=== PATIENT | female | born 1970 | race American Indian/Alaskan Native ===

== ENCOUNTER 2018-12-29 21:52 | Emergency (ER) | payer OTHER ==
--- NOTE | 2018-12-29 22:17 | Emergency Department Report ---
Blank Doc - Documentation Documentation: 48-year-old female that presents with abdominal pain with n/v. Had a procedure today for uterine embolization. This initial assessment/diagnostic orders/clinical plan/treatment(s) is/are subject to change based on patient's health status, clinical progression and re-assessment by fellow clinical providers in the ED. Further treatment and workup at subsequent clinical providers discretion. Patient/guardians urged not to elope from the ED as their condition may be serious if not clinically assessed and managed. Initial orders include: 1- Patient sent to MAIN for further evaluation and treatment. 2- UA 3- labs
[2018-12-29 22:53] LABS: Bilirubin,Urine NEG (Negative); Blood,Urine MOD (Negative); Color,Urine Yellow (Yellow); Mucus,Urine FEW /HPF; Urobilinogen,Urine < 2.0 mg/dL (<2.0)
[2018-12-29 23:03] LABS: Basophils # (Auto) 0.1 K/mm3 (0.0-0.1); Basophils % (Auto) 0.6 % (0.0-1.8); Eosinophils % (Auto) 0.1 % (0.0-4.3); Hematocrit 43.1 % (30.3-42.9); Hemoglobin 14.4 gm/dl (10.1-14.3); Lymphocytes # (Auto) 0.9 K/mm3 (1.2-5.4); Lymphocytes % (Auto) 7.2 % (13.4-35.0); Mean Corpuscular HGB Conc 33 % (30-34); Mean Corpuscular Volume 86 fl (79-97); Monocytes # (Auto) 0.6 K/mm3 (0.0-0.8); Platelet Count 368 K/mm3 (140-440); Red Blood Count 5.04 M/mm3 (3.65-5.03); Red Cell Distribution Width 13.8 % (13.2-15.2)
[2018-12-29 23:19] LABS: Alanine Aminotransferase 11 units/L (7-56); Albumin 4.8 g/dL (3.9-5); BUN/Creatinine Ratio 11; Blood Urea Nitrogen 8 mg/dL (7-17); Calcium 9.9 mg/dL (8.4-10.2); Hemolysis Index 71
[2018-12-29] MEDS ORDERED: NACL 0.9% 500 ML IV STA (23:21)
[2018-12-29] MEDS ORDERED: MORPHINE IV ONE (23:21)
[2018-12-29] MEDS ORDERED: ZOFRAN IV ONE (23:21)
--- NOTE | 2018-12-29 23:22 | Emergency Department Report ---
ED General Adult HPI - General Chief complaint: Abdominal Pain Stated complaint: EMESIS/ABD PAIN/POST FIBROIDS PROCEDURE Time Seen by Provider: 12/29/18 22:16 Source: patient, RN notes reviewed Mode of arrival: Ambulatory Limitations: No Limitations - History of Present Illness Initial comments: This is a 48-year-old female. The patient is not known to this provider previously. Past medical history includes diabetes, hypertension obesity, uterine fibroids. The patient states that she is not . Earlier on today, patient had an elective outpatient uterine artery ablation, via [facility] vascular [facility], by Dr. Betzy Hess; [phone]. Patient reports that shortly after the procedure was completed, she began to have nausea and vomiting. She was given a scopolamine patch, and Zofran tablets. These have not really improved her nausea. She describes multiple episodes of nonbloody, nonbilious emesis. This is now accompanied by suprapubic crampy abdominal pain. Symptoms are constant since completion of the procedure the patient reports she cannot tolerate oral feeds or her medicines at this time she states she had moderate sedation; does not know what agents were given -: Gradual, hour(s) Location: abdomen Severity scale (0 -10): 10 Consistency: constant Improves with: rest Worsens with: eating - Related Data Allergies Allergy/AdvReac Type Severity Reaction Status Date / Time No Known Allergies Allergy Unverified 12/29/18 22:02 ED Review of Systems ROS: Stated complaint: EMESIS/ABD PAIN/POST FIBROIDS PROCEDURE Other details as noted in HPI Constitutional: malaise. denies: fever Eyes: denies: eye discharge ENT: denies: epistaxis Respiratory: denies: wheezing Cardiovascular: denies: syncope Gastrointestinal: abdominal pain, nausea, vomiting Genitourinary: denies: dysuria Musculoskeletal: denies: myalgia Skin: denies: lesions Neurological: weakness Psychiatric: anxiety Hematological/Lymphatic: denies: easy bleeding ED Past Medical Hx - Past Medical History Previous Medical History?: Yes Hx Hypertension: Yes Hx Diabetes: Yes Additional medical history: Uterine Fibroids - Surgical History Past Surgical History?: Yes Hx Appendectomy: Yes Additional Surgical History: Uterine Embolization - Social History Smoking Status: Never Smoker Substance Use Type: None ED Physical Exam - General Limitations: No Limitations General appearance: alert, anxious, in distress, obese - Head Head exam: Present: atraumatic, normocephalic - Eye Eye exam: Present: normal appearance, EOMI. Absent: nystagmus - ENT ENT exam: Present: normal exam, normal orophraynx, mucous membranes moist, normal external ear exam - Neck Neck exam: Present: normal inspection, full ROM. Absent: tenderness, meningismus - Respiratory Respiratory exam: Present: normal lung sounds bilaterally. Absent: respiratory distress - Cardiovascular Cardiovascular Exam: Present: regular rate, normal rhythm, normal heart sounds. Absent: bradycardia, tachycardia, irregular rhythm, systolic murmur, diastolic murmur, rubs, gallop - GI/Abdominal GI/Abdominal exam: Present: soft, tenderness (there is mild lower abdominal tenderness. There is no rebound, guarding or peritoneal sign.). Absent: distended, guarding, rebound, rigid, pulsatile mass - Extremities Exam Extremities exam: Present: normal inspection (left upper extremity cannulation site shows no expansile hematoma or large bruise.), full ROM, other (2+ pulses noted in the bilateral upper, lower extremities. There is no long bone tenderness. Musculoskeletal compartments are soft. The pelvis is stable.). Absent: pedal edema, calf tenderness - Back Exam Back exam: Present: normal inspection. Absent: tenderness, CVA tenderness (R), CVA tenderness (L), paraspinal tenderness, vertebral tenderness - Neurological Exam Neurological exam: Present: alert, other (there is no facial droop. The tongue is midline. Extraocular movements are intact bilaterally. It is 5 out of 5 strength bilateral arms and legs, sensation is intact to light touch bilateral arms and legs.) - Psychiatric Psychiatric exam: Present: anxious - Skin Skin exam: Present: warm, dry, intact, normal color. Absent: rash ED Course Vital Signs 12/29/18 12/29/18 12/29/18 22:01 23:24 23:30 Temperature 98.6 F Pulse Rate 91 H 87 92 H Respiratory 16 10 L 10 L Rate Blood Pressure 184/87 Blood Pressure 186/89 [Left] O2 Sat by Pulse 98 97 Oximetry 12/29/18 12/30/18 12/30/18 23:44 00:12 00:30 Temperature Pulse Rate 85 Respiratory 18 19 Rate Blood Pressure 184/87 171/103 Blood Pressure [Left] O2 Sat by Pulse 97 94 Oximetry 12/30/18 01:03 Temperature Pulse Rate 91 H Respiratory 12 Rate Blood Pressure 184/87 Blood Pressure [Left] O2 Sat by Pulse 99 Oximetry - Reevaluation(s) Reevaluation #1: 12/29/18 23:28 Differential diagnosis, including not limited to: Medication side effect, bleeding, perforation, damage to adjacent structures Assessment and plan: 48-year-old female status post elective outpatient uterine artery ablation, with abdominal pain, nausea and vomiting. She is afebrile but hypertensive, likely secondary to pain and her aforementioned symptoms. Screening laboratory studies are reviewed and appreciated. We will treat her symptoms, obtain CT scan abdomen and pelvis, obtain EKG, and will reassess after her data points have resulted. Reevaluation #2: 12/30/18 01:27 Patient sleeping. No active distress. No active vomiting at this time. CT scan pending interpretation Reevaluation #3: 12/30/18 01:49 CT scan shows expected postprocedural findings. Belly soft on repeat exam. Patient sleeping comfortably and indicates that she feels improved. We'll give trial dose of dexamethasone, and 1 additional dose of pain medication and nausea medication. ED Medical Decision Making - Lab Data Result diagrams: 12/29/18 22:48 12/29/18 22:48 Vital Signs 12/29/18 22:01 Temperature 98.6 F Pulse Rate 91 H Respiratory 16 Rate Blood Pressure 186/89 [Left] O2 Sat by Pulse 98 Oximetry Lab Results 12/29/18 12/29/18 12/29/18 Range/Units 22:48 22:48 Unknown WBC 12.3 H (4.5-11.0) K/mm3 RBC 5.04 H (3.65-5.03) M/mm3 Hgb 14.4 H (10.1-14.3) gm/dl Hct 43.1 H (30.3-42.9) % MCV 86 (79-97) fl MCH 29 (28-32) pg MCHC 33 (30-34) % RDW 13.8 (13.2-15.2) % Plt Count 368 (140-440) K/mm3 Lymph % (Auto) 7.2 L (13.4-35.0) % [place] % (Auto) 5.0 (0.0-7.3) % Eos % (Auto) 0.1 (0.0-4.3) % Baso % (Auto) 0.6 (0.0-1.8) % Lymph # 0.9 L (1.2-5.4) K/mm3 [place] # 0.6 (0.0-0.8) K/mm3 Eos # 0.0 (0.0-0.4) K/mm3 Baso # 0.1 (0.0-0.1) K/mm3 Seg Neutrophils % 87.1 H (40.0-70.0) % Seg Neutrophils # 10.7 H (1.8-7.7) K/mm3 Sodium 139 (137-145) mmol/L Potassium 4.7 (3.6-5.0) mmol/L Chloride 99.3 (98-107) mmol/L Carbon Dioxide 24 (22-30) mmol/L Anion Gap 20 mmol/L BUN 8 (7-17) mg/dL Creatinine 0.7 (0.7-1.2) mg/dL Estimated GFR > 60 ml/min BUN/Creatinine Ratio 11 % Glucose 132 H (65-100) mg/dL Calcium 9.9 (8.4-10.2) mg/dL Total Bilirubin 0.20 (0.1-1.2) mg/dL AST 16 (5-40) units/L ALT 11 (7-56) units/L Alkaline Phosphatase 67 (35-129) units/L Total Protein 8.6 H (6.3-8.2) g/dL Albumin 4.8 (3.9-5) g/dL Albumin/Globulin Ratio 1.3 % Lipase 22 (13-60) units/L Urine Color Yellow (Yellow) Urine Turbidity Slightly-cloudy (Clear) Urine pH 6.0 (5.0-7.0) Ur Specific [place] 1.019 (1.003-1.030) Urine Protein 100 mg/dl (Negative) mg/dL Urine Glucose (UA) 50 (Negative) mg/dL Urine Ketones Neg (Negative) mg/dL Urine Blood Mod (Negative) Urine Nitrite Neg (Negative) Urine Bilirubin Neg (Negative) Urine Urobilinogen < 2.0 (<2.0) mg/dL Ur Leukocyte Esterase Neg (Negative) Urine WBC (Auto) 3.0 (0.0-6.0) /HPF Urine RBC (Auto) 3.0 (0.0-6.0) /HPF U Epithel Cells (Auto) 13.0 (0-13.0) /HPF Urine Mucus Few /HPF - EKG Data -: EKG Interpreted by Nm EKG shows normal: sinus rhythm Rate: normal - EKG Data When compared to previous EKG there are: previous EKG unavailable 12/30/18 01:28 This is a sinus rhythm, 86 bpm, normal axis, QTC is 429 ms, there is borderline high left ventricular voltage, the EKG shows low voltage in the inferior leads, the EKG is abnormal, the EKG is not consistent with ST elevation myocardial infarction. - Radiology Data Radiology results: pending, report reviewed, image reviewed Print Report Referring Physician: RACHID FREDERICK Patient Name: JEB BROWN Date of : 1970 Sex: Female Report Date: 2018-12-30 Report Status: Finalized Findings [facility] [address] [place] [address] Cat Scan Report Signed Patient: JEB BROWN R#: [id number] : 1970 Acct:[id number] Age/Sex: 48 / F ADM Date: 12/29/18 Loc: ED Attending Dr: Ordering Physician: RACHID FREDERICK MD Date of Service: 12/29/18 Procedure(s): CT abdomen pelvis w con Accession Number(s): [id number] cc: RACHID FREDERICK MD CT abdomen pelvis w con INDICATION / CLINICAL INFORMATION: abd pain n/v s/p uterine artery embolization this. TECHNIQUE: All CT scans at this location are performed using CT dose reduction for ALARA by means of automated exposure control. COMPARISON: None available. FINDINGS: No acute disease is seen in either lower lung. ABDOMEN: Gallbladder appears normal. A tiny low-density area in the liver appears benign. No hepatic abnormality. The spleen and pancreas are normal. Kidneys appear normal bilaterally. There is slight prominence of the left ureter and left pelvicalyceal system which appear to be compressed by the fibroid uterus. No small bowel distention. No retroperitoneal adenopathy. Pelvis: There are no dependent fluid collections seen in the pelvis. The enlarged fibroid uterus demonstrates enhancement. Smaller uterine fibroids have a similar appearance. The largest fibroid in the lower uterine segment and enhances heterogeneously as a heterogeneous appearance presumably is undergoing post UAE necrosis. IMPRESSION: 1. Large lower uterine segment fibroid appearance consistent with postembolization. 2. No acute intra-abdominal or pelvic abnormalities are otherwise identified. 3. Mild left pyelocaliectasis is created by uterine compression of the distal left ureter. Signer Name: Gt Amin MD Signed: 12/30/2018 1:30 AM Workstation Name: [id number] Transcribed By: JUNE Dictated By: Gt Amin MD Electronically Authenticated By: Gt Amin MD Signed Date/Time: 12/30/18 0130 Critical care attestation.: If time is entered above; I have spent that time in minutes in the direct care of this critically ill patient, excluding procedure time. ED Disposition Clinical Impression: Status post embolization of uterine artery, History of nausea and vomiting Disposition: DC-01 TO HOME OR SELFCARE Is pt being admited?: No Does the pt Need Aspirin: No Condition: Stable Additional Instructions: Advance diet as tolerated. Continue the pain medications and nausea medications that were prescribed for the patient. Follow-up with your surgeon within the next 2-3 days for repeat checkup and evaluation. Patient was found to have elevated blood pressure while here in the emergency room, and this should be followed up by primary care doctor within the next month. Long-term compl ications of hypertension and elevated blood pressure includes stroke, heart attack, disability, paralysis, loss of quality of life. Return to the emergency room right away with projectile vomiting, change in mental status, confusion, inability to tolerate liquid feeds, fevers, chills, worsens pain, new, worsened or different symptoms not present on initial emergency room evaluation. Referrals: PRIMARY CARE, [Primary Care Provider] - 3-5 Days
[2018-12-29 23:57] LABS: HCG Qualitative,Urine Negative (Negative)
--- NOTE | 2018-12-30 01:34 | Cat Scan Report ---
CT abdomen pelvis w con INDICATION / CLINICAL INFORMATION: abd pain n/v s/p uterine artery embolization this. TECHNIQUE: All CT scans at this location are performed using CT dose reduction for ALARA by means of automated e xposure control. COMPARISON: None available. FINDINGS: No acute disease is seen in either lower lung. ABDOMEN: Gallbladder appears normal. A tiny low-density area in the liver appears benign. No hepatic abnormality. The spleen and pancreas are normal. Kidneys appear normal bilaterally. There is slight prominence of the left ureter and left pelvicalyceal system which appear to be compre ssed by the fibroid uterus. No small bowel distention. No retroperitoneal adenopathy. Pelvis: There are no dependent fluid collections seen in the pelvis. The enlarged fibroid uterus demonstrates enhancement. Smaller uterine fibroids have a similar appearance. The largest fibroid in the lower uterine segment and enhances heterogeneously as a heterogeneous appe arance presumably is undergoing post UAE necrosis. IMPRESSION: 1. Large lower uterine segment fibroid appearance consistent with postembolization. 2. No acute intra-abdominal or pelvic abnormalities are otherwise identified. 3. Mild left pyelocaliectasis is created by uterine compression of the distal left ureter. Signer Name: Gt Amin MD Signed: 12/30/2018 1:30 AM Workstation Name: [id number]
[2018-12-30] MEDS ORDERED: DECADRON IV ONE (01:47)
[2018-12-30] MEDS ORDERED: MORPHINE IV ONE (01:49)
[2018-12-30] MEDS ORDERED: REGLAN IV ONE (01:49)
[2018-12-30 02:24] VITALS: BP 171/103
== END 2018-12-30 02:24 | disposition home or self-care (01) ==
LOC: ED 21:52
DX: D25.9 Leiomyoma of uterus, unspecified (principal); R11.2 Nausea with vomiting, unspecified; Z98.891 History of uterine scar from previous surgery; I10 Essential (primary) hypertension; E11.9 Type 2 diabetes mellitus without complications; E66.9 Obesity, unspecified; Z68.38 Body mass index [BMI] 38.0-38.9, adult; Z90.49 Acquired absence of other specified parts of digestive tract
CPT/HCPCS: 36415; 74177; 80053; 81001; 81025; 82550; 83690; 83735; 85025; 93005; 93010; 96374; 96375; 96376; 99284; J1100; J2270; J2405; J2765; J7040; Q9967

== ENCOUNTER 2020-02-15 23:41 | Emergency (ER) | payer OTHER ==
[2020-02-16] MEDS ORDERED: HYDROmorphone 1 MG/1 ML INJ IV ONE (00:44)
[2020-02-16] MEDS ORDERED: SODIUM CHLORIDE 0.9% 1000 ML 1,000 ML IV ONE (00:44)
--- NOTE | 2020-02-16 00:44 | Emergency Department Report ---
ED Abdominal Pain HPI - General Chief Complaint: Abdominal Pain Stated Complaint: RT SIDE PAIN PUI?: No Time Seen by Provider: 02/16/20 00:35 Source: patient Mode of arrival: Ambulatory Limitations: No Limitations - History of Present Illness Initial Comments: Patient is a 49-year-old female that presents emergency room with complaints of abdominal pain. Patient states her abdominal pain started 4 days ago. Patient states the pain is worsening. Patient dates came to the ER because she could not tolerate the pain. Patient dates the pain is a 10 out of 10. Patient states the pain is in her right upper quadrant and right lower. Patient states the pain is better with rest and worse with movement and palpation. Patient denies fever and chills. Patient denies nausea and vomiting and diarrhea. Patient denies chest pain or shortness of breath. Patient denies recent travel. Patient denies recent international travel. Patient denies exposure to the novel coronavirus. Patient denies sick contacts. Patient denies fever and chills. Patient denies cough. Patient denies diarrhea. Patient denies coming in contact with anybody with symptoms of the novel coronavirus. MD Complaint: abdominal pain Location: RUQ, RLQ Radiation: none Migration to: no migration Severity: severe Severity scale (0 -10): 10 Quality: stabbing Consistency: constant Improves With: rest Worsens With: eating, movement, other (Palpation) Associated Symptoms: denies other symptoms. denies: nausea, vomiting, diarrhea, fever, dysuria, hematemesis, hematochezia, melena, hematuria, syncope - Related Data Previous Rx's Medication Instructions Recorded Last Taken Type Acetaminophen/Codeine [Tylenol 1 tab PO Q4HR PRN #10 tablet 02/16/20 Unknown Rx /Codeine # 3 tab] Allergies Allergy/AdvReac Type Severity Reaction Status Date / Time No Known Allergies Allergy Unverified 12/29/18 22:02 ED Review of Systems ROS: Stated complaint: RT SIDE PAIN Other details as noted in HPI Constitutional: denies: chills, fever Eyes: denies: eye pain, eye discharge, vision change ENT: denies: ear pain, throat pain Respiratory: denies: cough, shortness of breath, wheezing Cardiovascular: denies: chest pain, palpitations Endocrine: no symptoms reported Gastrointestinal: abdominal pain. denies: nausea, diarrhea Genitourinary: denies: urgency, dysuria, discharge Musculoskeletal: denies: back pain, joint swelling, arthralgia Skin: denies: rash, lesions Neurological: denies: headache, weakness, paresthesias Psychiatric: denies: anxiety, depression Hematological/Lymphatic: denies: easy bleeding, easy bruising ED Past Medical Hx - Past Medical History Previous Medical History?: Yes Hx Hypertension: Yes Hx Diabetes: Yes Additional medical history: Uterine Fibroids - Surgical History Past Surgical History?: Yes Hx Appendectomy: Yes Additional Surgical History: Uterine Embolization - Family History Family history: no significant - Social History Smoking Status: Never Smoker Substance Use Type: None - Medications Home Medications: Home Medications Medication Instructions Recorded Confirmed Last Taken Type Acetaminophen/Codeine [Tylenol 1 tab PO Q4HR PRN #10 tablet 02/16/20 Unknown Rx /Codeine # 3 tab] ED Physical Exam - General Limitations: No Limitations General appearance: alert, in no apparent distress - Head Head exam: Present: atraumatic, normocephalic - Eye Eye exam: Present: normal appearance - ENT ENT exam: Present: mucous membranes moist - Neck Neck exam: Present: normal inspection - Respiratory Respiratory exam: Present: normal lung sounds bilaterally. Absent: respiratory distress - Cardiovascular Cardiovascular Exam: Present: regular rate, normal rhythm. Absent: systolic murmur, diastolic murmur, rubs, gallop - GI/Abdominal GI/Abdominal exam: Present: soft, tenderness (Right upper quadrant tenderness to palpation.), normal bowel sounds - Extremities Exam Extremities exam: Present: normal inspection - Back Exam Back exam: Present: normal inspection - Neurological Exam Neurological exam: Present: alert, oriented X3 - Psychiatric Psychiatric exam: Present: normal affect, normal mood - Skin Skin exam: Present: warm, dry, intact, normal color. Absent: rash ED Course Vital Signs 02/16/20 02/16/20 00:07 03:39 Temperature 98.9 F 97.7 F Pulse Rate 76 75 Respiratory 16 18 Rate Blood Pressure 179/87 Blood Pressure 164/97 [Left] O2 Sat by Pulse 99 99 Oximetry - Reevaluation(s) Reevaluation #1: Patient states her pain is better. I discussed all results and clinical findings with patient. I discussed plan of care with patient. Patient agrees with plan of care. Patient is stable for discharge. Patient will be discharged home. Patient given discharge instructions. Patient voiced understanding of discharge instructions. 02/16/20 03:05 ED Medical Decision Making - Lab Data Result diagrams: 02/16/20 00:21 02/16/20 00:21 - Radiology Data Radiology results: report reviewed CT ABDOMEN AND PELVIS WITH CONTRAST HISTORY: Patient complains of R.U.Q. abdominal pain x 4 days.. COMPARISON: CT abdomen/pelvis from 12/30/2018 TECHNIQUE: CT images of the abdomen and pelvis were obtained following administration of intravenous contrast. All CT scans at this location are performed using CT dose reduction for ALARA by means of automated exposure control. CONTRAST: 100 ml of intravenous contrast administered. FINDINGS: Lungs/bones: Lung bases are clear. There are degenerative changes in the spine and pelvis with no acute osseous abnormality. Abdomen/pelvis: There are tiny cysts within the liver. Liver is otherwise unremarkable. The gallbladder, spleen, pancreas, adrenals, kidneys, and proximal GI tract appear unremarkable. There is a small fat-containing umbilical hernia. There are multiple uterine fibroids, some of which are calcified. No pelvic free fluid. The bladder is unremarkable. No acute colonic abnormality identified. The appendix is surgically absent. IMPRESSION: 1. No acute abnormality identified. 2. Incidental findings as above. - Medical Decision Making Patient is a 49-year-old female that presents emergency room with right upper and right lower abdominal pain. Patient had labs done. Patient had a CT done. Patient's labs are essentially unremarkable. Patient CT was positive for uterine fibroid only. CT did not show any acute findings. Patient given fluids and pain meds and her pain improved. Patient essentially asymptomatic prior to discharge. Patient stable for discharge. Patient discharged home. - Differential Diagnosis Fibroids, gallbladder, cholecystitis, cholelithiasis, ovarian cyst Critical care attestation.: If time is entered above; I have spent that time in minutes in the direct care of this critically ill patient, excluding procedure time. ED Disposition Clinical Impression: Abdominal pain Qualifiers: Abdominal location: right upper quadrant Qualified Code(s): R10.11 - Right upper quadrant pain Uterine fibroid Qualifiers: Uterine leiomyoma location: unspecified location Qualified Code(s): D25.9 - Leiomyoma of uterus, unspecified Disposition: DC-01 TO HOME OR SELFCARE Is pt being admited?: No Does the pt Need Aspirin: No Condition: Stable Instructions: Uterine Fibroids, [id number], Abdominal Pain, Adult, [id number], Abdominal Pain (ED) Additional Instructions: Patient to follow-up with primary care in 2 to 3 days. Patient to follow-up with [facility] in 2 to 3 days. Patient to rest. Patient to increase water. Patient to avoid strenuous exercise or heavy lifting until cleared by [facility]. Patient to take Tylenol or ibuprofen as needed for pain. Patient to take meds as directed. Patient to return to the ER if condition worsens, changes or new symptoms arise. Prescriptions: Acetaminophen/Codeine [Tylenol /Codeine # 3 tab] 1 tab PO Q4HR PRN #10 tablet PRN Reason: Pain Referrals: PRIMARY CARE, [Primary Care Provider] - 2-3 Days Time of Disposition: 03:30
[2020-02-16 00:49] LABS: Basophils # (Auto) 0.1 K/mm3 (0.0-0.1); Eosinophils # (Auto) 0.1 K/mm3 (0.0-0.4); Eosinophils % (Auto) 2.1 % (0.0-4.3); Hematocrit 40.6 % (30.3-42.9); Hemoglobin 13.7 gm/dl (10.1-14.3); Lymphocytes # (Auto) 2.1 K/mm3 (1.2-5.4); Lymphocytes % (Auto) 35.3 % (13.4-35.0); Mean Corpuscular HGB Conc 34 % (30-34); Mean Corpuscular Volume 85 fl (79-97); Monocytes # (Auto) 0.5 K/mm3 (0.0-0.8); Platelet Count 333 K/mm3 (140-440); Red Blood Count 4.76 M/mm3 (3.65-5.03); Red Cell Distribution Width 13.6 % (13.2-15.2)
[2020-02-16 01:08] LABS: Alanine Aminotransferase 13 units/L (7-56); Albumin 4.6 g/dL (3.9-5); BUN/Creatinine Ratio 20; Blood Urea Nitrogen 16 mg/dL (7-17); Hemolysis Index 12
[2020-02-16 01:31] LABS: Bilirubin,Urine NEG (Negative); Blood,Urine NEG (Negative); Color,Urine Straw (Yellow); Protein,Urine <15 mg/dL mg/dL (Negative); Urobilinogen,Urine < 2.0 mg/dL (<2.0)
--- NOTE | 2020-02-16 01:53 | Cat Scan Report ---
CT ABDOMEN AND PELVIS WITH CONTRAST HISTORY: Patient complains of R.U.Q. abdominal pain x 4 days.. COMPARISON: CT abdomen/pelvis from 12/30/2018 TECHNIQUE: CT images of the abdomen and pelvis were obtained following administration of intravenous contrast. All CT scans at this location are performed using CT dose reduction for ALARA by means of automated exposure control. CONTRAST: 100 ml of intravenous contrast administered. FINDINGS: Lungs/bones: Lung bases are clear. There are degenerative changes in the spine and pelvis with no ac efrain osseous abnormality. Abdomen/pelvis: There are tiny cysts within the liver. Liver is otherwise unremarkable. The gallblad kimber, spleen, pancreas, adrenals, kidneys, and proximal GI tract appear unremarkable. There is a small fat-containing umbilical hernia. There are multiple uterine fibroids, some of which are calcified. No pelvic free fluid. The bladder i s unremarkable. No acute colonic abnormality identified. The appendix is surgically absent. IMPRESSION: 1. No acute abnormality identified. 2. Incidental findings as above. Signer Name: Tony Castañeda MD Signed: 02/16/2020 1:48 AM Workstation Name: [id number]
[2020-02-16 03:40] VITALS: BP 164/97
== END 2020-02-16 03:40 | disposition home or self-care (01) ==
LOC: ED 23:41
DX: D25.9 Leiomyoma of uterus, unspecified (principal); R10.31 Right lower quadrant pain; R10.32 Left lower quadrant pain
CPT/HCPCS: 36415; 74177; 80053; 81001; 83690; 84703; 85025; 96361; 96374; 99284; J1170; J7030; Q9967